=== PATIENT | female | born 1945 | race Caucasian/White ===

== ENCOUNTER 2019-07-25 14:25 | Inpatient (IN) ==
[2019-07-25] MEDS ORDERED: Ondansetron 4 mg VIAL 2 MG/ML 2 ml VIAL IV PRN (17:11)
[2019-07-25 18:11] LABS: ABS Lymphocytes 0.6 10^3/ul (1.0-4.8); Eosinophil % 0.1 %; Hematocrit 37 % (35-47); Lymphocyte % 7.1 %; Mean Corpuscular HGB Conc 35 g/dL (31-36); Mean Corpuscular Hemoglobin 30 pg (27-31); Mean Corpuscular Volume 87 fL (80-97); Mean Platelet Volume 7.3 fL (7.4-10.4); Platelet Count 383 10^3/uL (150-450); Red Blood Count 4.29 10^6 /uL (3.70-4.87); Red Cell Distribution Width 13 % (10-15); White Blood Count 8.5 10^3/uL (3.5-10.8)
[2019-07-25 18:16] LABS: INR 1.47 (0.82-1.09)
[2019-07-25] MEDS ORDERED: Magnesium Sulfate IV 3 GM in NS 0.9% 100 ml BAG 100 ML IVPB ONE (18:38)
[2019-07-25 18:43] LABS: Albumin 3.4 g/dL (3.2-5.2); Albumin/Globulin Ratio 1.1 (1-3); BUN/Creatinine Ratio 14.5 (8-20); EGFR African American 36.4 (>60); EGFR Non-African American 30.1 (>60); Globulin 3.1 g/dL (2-4); Potassium 4.9 mmol/L (3.5-5.0); Total Bilirubin 0.4 mg/dL (0.2-1.0); Total Protein 6.5 g/dL (6.4-8.9)
[2019-07-25 18:50] LABS: TSH (Thyroid Stimulating Horm) 1.22 mcIU/mL (0.34-5.60)
[2019-07-25] MEDS: NS 0.9% 1000 ml BAG 1,000 ML IV SCH (19:35)
[2019-07-25] MEDS ORDERED: Magnesium Sulfate IV 1GM/100ML 1 GM/100 ML BAG IV ONE (21:00)
[2019-07-25] MEDS ORDERED: Heparin 5000 UNITS/ML 1 mL VIAL SUBCUT SCH (22:00)
[2019-07-25 23:22] LABS: Urine Appearance Cloudy; Urine Bilirubin Negative (Negative); Urine Blood Negative (Negative); Urine Color Yellow; Urine Glucose Negative (Negative); Urine Ketones Trace (Negative); Urine Nitrite Negative (Negative); Urine Protein Negative (Negative); Urine Specific Gravity 1.009 (1.010-1.030); Urine Urobilinogen Negative (Negative)
[2019-07-25 23:23] LABS: Urine Bacteria Absent (Absent); Urine Red Blood Cell Absent (Absent); Urine Squamous Epithelial Cell Present (Absent); Urine White Blood Cell 2+(11-20/hpf) (Absent)
[2019-07-26 06:41] LABS: BUN/Creatinine Ratio 13.3 (8-20); Calcium 8.4 mg/dL (8.6-10.3); EGFR African American 36.7 (>60); EGFR Non-African American 30.3 (>60); Magnesium 1.9 mg/dL (1.9-2.7); Potassium 4.3 mmol/L (3.5-5.0)
[2019-07-26] MEDS ORDERED: Phytonadione Oral Solution 5 MG/25 ML UDC PO ONE (07:21)
[2019-07-26 13:29] LABS: Body Fluid Source Peritonial Fluid
[2019-07-26 15:09] LABS: Body Fluid Mono 23 %
[2019-07-26] MEDS: NS 0.9% 1000 ml BAG 1,000 ML IV SCH (17:36)
[2019-07-27 06:06] LABS: BUN/Creatinine Ratio 11.3 (8-20); Calcium 7.8 mg/dL (8.6-10.3); EGFR African American 40.6 (>60); EGFR Non-African American 33.6 (>60); Potassium 3.8 mmol/L (3.5-5.0)
[2019-07-27] MEDS: Multivitamins/Minerals TAB PO SCH (07:37)
[2019-07-27] MEDS ORDERED: Gadoteridol (CONTRAST) 279.3 MG/ML 10 ML IV ONE (12:50)
[2019-07-28 03:13] VITALS: BP 102/58
[2019-07-28 07:15] LABS: BUN/Creatinine Ratio 9.6 (8-20); Calcium 7.9 mg/dL (8.6-10.3); EGFR African American 39.1 (>60); EGFR Non-African American 32.4 (>60); Potassium 4.2 mmol/L (3.5-5.0)
[2019-07-28] MEDS: Multivitamins/Minerals TAB PO SCH (08:48)
[2019-07-28 14:19] LABS: Lactate Dehydrogenase, BF 501 U/L
[2019-07-28 16:05] LABS: Fluid Type, Glucose PERITONEAL
[2019-07-28 16:08] LABS: Fluid Type, Protein, Total PERITONEAL
[2019-07-28 16:09] LABS: Fluid Type, Albumin PERITONEAL
== END 2019-07-28 14:35 | disposition home or self-care (01) | DRG 375 ==
LOC: MEDTELE 16:43
PROVIDERS: ADMIT Internal Medicine; ATTEND Pediatrics